=== PATIENT | female | born 1980 | race Caucasian/White ===

== ENCOUNTER → 2016-04-07 | Outpatient (CLI) | payer OTHER ==
--- NOTE | 2016-04-07 15:50 | MR ---
EXAMINATION TYPE: MR lumbar spine wo con DATE OF EXAM: 04/07/2016 11:09 AM COMPARISON: Prior lumbar MRI May 2012 HISTORY: Low back pain TECHNIQUE: Multiplanar, multisequence images of the lumbar spine were acquired. There is a mild spinal curvature as on prior exam. Endplate discogenic marrow signal change, multilev el spondylosis again noted. Disc spaces are stable. L1-L2: Stable, unremarkable L2-L3: Stable, no significant interval change L3-L4: There is some disc desiccation present, loss of disc height and signal, small central posterio r disc bulge causes minimal anterior mass effect on the thecal sac as on prior exam. Facet arthropath y with hypertrophy of the ligamentum flavum causes posterior lateral mass effect on the thecal sac. L4-L5: Stable, there is a mild posterior broad-based disc bulge, no significant central stenosis or f oraminal encroachment. Mild facet arthropathy with hypertrophy of the ligamentum flavum causing poste rior lateral aspect of the thecal sac. L5-S1: Stable, no significant interval change Lumbar segments are intact. No paraspinal masses are identified. Conus medullaris has a normal appe arance. IMPRESSION: Essentially stable exam. Mild degenerative disc disease, facet arthropathy.
== END | disposition home or self-care (01) ==
LOC: RADMRIMAIN 09:37
PROVIDERS: ATTEND Nurse Practitioner Acute Care
DX: M51.36 Other intervertebral disc degeneration, lumbar region (principal); M46.86 Other specified inflammatory spondylopathies, lumbar region
CPT/HCPCS: 72148

== ENCOUNTER → 2018-01-12 | Outpatient (CLI) | payer OTHER ==
--- NOTE | 2018-01-12 11:28 | MR ---
EXAMINATION TYPE: MR lumbar spine wo con DATE OF EXAM: 01/12/2018 COMPARISON: MRI lumbar spine April 07, 2016. CT abdomen and pelvis October 09, 2013. HISTORY: Lumbago per order. Back pain into left leg for years per patient. TECHNIQUE: Multiplanar, multisequence imaging of the lumbar spine is performed without IV contrast. FINDINGS: Sagittal images of the lumbar spine show vertebral body heights and alignment to remain sat isfactory. There is increasing disc desiccation upper to mid lumbar spine most prominent L3-L4 level redemonstrated. This space heights are maintained. No new large posterior disc herniations are prese nt on sagittal images. Tiny posterior disc herniation is redemonstrated L3-L4 level with annular tear . The conus medullaris is stable in position ending mid to inferior T12 level without abnormal signal . Some heterogeneity lower lumbar spine is present. Axial images show the T12-L1, L1-L2, and L2-L3 levels all to appear stable and within normal limits. Axial images at L3-L4 level show broad-based right paracentral disc protrusion mildly effacing anteri or thecal sac, bilateral neural foramina are patent. No significant change from prior. Axial images at L4-L5 level redemonstrate mild facet degenerative changes bilaterally. Spinal canal i s preserved. Bilateral neural foramina are patent. No significant change from prior. Axial images at L5-S1 level redemonstrate mild facet degenerative changes bilaterally. No disc hernia tion or spinal canal effacement is seen. Bilateral neural foramina are patent. No significant change from prior. The paraspinal muscle bulk is preserved. No suspicious retroperitoneal findings are seen. IMPRESSION: Stable small disc herniation L3-L4 level. Stable facet arthropathy lower lumbar spine. No new or suspicious herniation is seen to account for patient's left-sided radiculopathy type symptoms .
== END | disposition home or self-care (01) ==
LOC: RADMRIMAIN 09:05
PROVIDERS: ATTEND Psychiatry & Neurology Neurology
DX: M51.26 Other intervertebral disc displacement, lumbar region (principal); M46.96 Unspecified inflammatory spondylopathy, lumbar region
CPT/HCPCS: 72148

== ENCOUNTER → 2018-12-11 | Outpatient (CLI) | payer OTHER ==
[2018-12-11 12:56] VITALS: BP 118/76; PULSE 70; RESP 16
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
== END | disposition home or self-care (01) ==
LOC: PNWHC3 12:09
PROVIDERS: ATTEND Specialist
DX: G89.29 Other chronic pain (principal); M51.36 Other intervertebral disc degeneration, lumbar region; M47.816 Spondylosis without myelopathy or radiculopathy, lumbar region; M46.96 Unspecified inflammatory spondylopathy, lumbar region; M79.7 Fibromyalgia; Z79.891 Long term (current) use of opiate analgesic; Z79.899 Other long term (current) drug therapy; Z87.891 Personal history of nicotine dependence
CPT/HCPCS: 99211

== ENCOUNTER → 2019-09-20 | Outpatient (CLI) | payer OTHER ==
--- NOTE | 2019-09-20 11:23 | XR ---
Right shoulder HISTORY: Right shoulder pain 2 views the right shoulder correlated to chest x-ray same date Arthropathy is present at the acromioclavicular joint. There is no fracture or dislocation. Right wei g apex as visualized is normal. Distal acromion is downturned. IMPRESSION: Correlate for possible impingement. Shoulder MRI may be of benefit.
--- NOTE | 2019-09-20 11:30 | XR ---
EXAMINATION TYPE: XR chest 2V DATE OF EXAM: 09/20/2019 COMPARISON: NONE HISTORY: M 25.511, M 94.0, chest pain right side TECHNIQUE: Frontal and lateral views of the chest are obtained. FINDINGS: There is no focal air space opacity, pleural effusion, or pneumothorax seen. The cardiac silhouette size is within normal limits. The osseous structures are intact. IMPRESSION: No acute cardiopulmonary process.
== END | disposition home or self-care (01) ==
LOC: RADXRMAIN 09:38
PROVIDERS: ATTEND Internal Medicine
DX: M25.511 Pain in right shoulder (principal); M94.0 Chondrocostal junction syndrome [Tietze]
CPT/HCPCS: 71046

== ENCOUNTER → 2019-10-25 | Outpatient (CLI) | payer OTHER ==
--- NOTE | 2019-10-25 15:36 | MR ---
EXAMINATION TYPE: MR shoulder RT wo con DATE OF EXAM: 10/25/2019 COMPARISON: Right shoulder x-ray September 20, 2019 HISTORY: Rt shoulder pain, radiates into chest TECHNIQUE: Multiplanar, multisequence imaging of the right shoulder is performed without contrast. FINDINGS: Rotator Cuff: Distal supraspinatus and infraspinatus tendons are intact. Subscapularis tendon is inta ct. Rotator cuff muscle bulk is preserved. Acromioclavicular Joint: Acromioclavicular joint appears within normal limits. Underlying fat plane m aintained. Distal acromion morphology unremarkable. Glenohumeral Joint: Small joint effusion. No significant spurring. Mild narrowing. Labrum: The labrum appears grossly intact given limitation of non-arthrogram study. Biceps Tendon: The long head of biceps is in normal location within bicipital groove. Bone marrow signal: No focal abnormal marrow signal is appreciated. Other: No additional significant abnormality is appreciated. IMPRESSION: No rotator cuff or labral tear identified.
== END | disposition home or self-care (01) ==
LOC: RADMRIMAIN 13:45
PROVIDERS: ATTEND Internal Medicine
DX: M25.511 Pain in right shoulder (principal)

== ENCOUNTER → 2020-02-06 | Outpatient (CLI) | payer OTHER ==
[2020-02-06 13:35] VITALS: BP 130/84; PULSE 76; RESP 14; TEMP 98
--- NOTE | 2020-02-06 13:46 | P.PN ---
Subjective Progress Note Date: 02/06/20 This is a 39-year-old lady with history of chronic neck and lower back pain. The patient was in our clinic about one year ago and we recommended doing a diagnostic lumbar medial branch block at that time however the patient was hesitant about it. The patient came back with a new complaint of increasing n jaiden and right shoulder pain. The patient had what seems to be trigger point injection around the right shoulder blade and also shoulder joint steroid injection which has helped her pain slightly as she states. She also received an MRI on the cervical spine which showed severe neural foraminal stenosis at multiple levels however the patient denies any paresthesia or pain in the extremities. The MRI also showed facet arthropathy at multiple levels. The patient takes 2 pills of [place] 10 mg every day and Cymbalta. Patient denies new-onset weakness, bowel/bladder incontinence, or any other signs or symptoms of cauda equina syndrome. There are no signs of acute intoxication, and no indications of medication diversion or overuse. In addition to above, 13-point review of systems is also negative for chest pain, shortness of breath, changes in vision, changes in hearing, new onset weakness, abdominal pain, diarrhea, extreme fatigue, malaise, fever, skin changes, homicidal or suicidal ideation, or bowel or bladder incontinence. Vital Signs: Reviewed in EMR Gen: AAOx3, NAD HEENT: PERRLA,hearing grossly normal Pulm: resp unlabored Neck: supple, trachea midline Neuro exam of the upper extremities: Normal muscle strength bilaterally Straight leg raising test: Seth's test: Range of motion of the lumbar spine: Facet loading test: Tenderness in the cervical paravertebral musculature: Positive on the right side Positive tenderness also around the right shoulder blade Normal range of motion of the cervical spine however with increased pain with right rotation Neuro: CN II-XII grossly intact, Imaging: Reviewed in EMR/chart Assessment: Cervical spondylosis without myelopathy 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 Explanation: Opioid and psychological risk scores were reviewed. Diagnoses, prognoses, and multiple treatment options including but not limited to physical therapy, interventional therapies, adjuvant medical therapies, narcotic medication therapies, and surgery were discussed with the patient and all questions were answered to the patient's satisfaction. 2. Opioid agreement: Signed with the patient and the patient is warned not to use opioids while driving or before driving and not to combine opioids with benzodiazepines or alcohol. 3. Counseling: The patient was counseled extensively on SMOKING CESSATION, BODY MASS INDEX, EXERCISE. Specifically, the patient was instructed regarding the importance of smoking cessation, obesity, and exercise in the context of both chronic pain and overall health. 4. Procedures: The patient may benefit from a diagnostic cervical medial branch block however she does not want to have any injections. 5. Consultations: Refer to physical therapy 6. Investigations: None 7. Medications: Continue same medications which she receives from her primary care physician 8. Disposition: Return to clinic as needed 9. Maps were reviewed and were appropriate. Objective - Vital Signs Vital signs: Vital Signs Temp 98.0 F 02/06/20 13:26 Pulse 76 02/06/20 13:26 Resp 14 02/06/20 13:26 BP 130/84 02/06/20 13:26 Pulse Ox 99 02/06/20 13:26
== END | disposition home or self-care (01) ==
LOC: PNWHC3 12:31
PROVIDERS: ATTEND Anesthesiology
DX: M47.812 Spondylosis without myelopathy or radiculopathy, cervical region (principal); M48.061 Spinal stenosis, lumbar region without neurogenic claudication; M79.18 Myalgia, other site
CPT/HCPCS: 99211

== ENCOUNTER → 2020-08-27 | Outpatient (CLI) | payer OTHER ==
--- NOTE | 2020-08-28 02:36 | MR ---
EXAMINATION TYPE: MR knee RT wo con DATE OF EXAM: 08/27/2020 COMPARISON: None HISTORY: Right knee pain, lateral aspect x 2 mos, no trauma. Multiplanar multiecho imaging of the right knee was performed without contrast. The anterior posterior cruciate ligaments are intact. There is a mild knee joint effusion. The collat eral ligaments are intact. I see no bony destructive process. Patella is intact. There is no evidence of bone edema. The menisci appear intact. IMPRESSION: Knee joint effusion. No evidence of ligamentous tear. No evidence of a meniscal tear.
== END | disposition home or self-care (01) ==
LOC: RADMRIMAIN 18:57
PROVIDERS: ATTEND Orthopaedic Surgery
DX: M25.461 Effusion, right knee (principal)

== ENCOUNTER → 2020-10-04 | Outpatient (CLI) | payer OTHER ==
--- NOTE | 2020-10-04 17:00 | MR ---
EXAMINATION TYPE: MR lumbar spine wo con DATE OF EXAM: 10/04/2020 COMPARISON: 01/12/2018 HISTORY: Low back pain that goes down both legs for 4 months. Multiplanar multiecho imaging of the lumbar spine without contrast. Vertebra have normal alignment. Disc spaces are fairly normal. There is no compression fracture. I se e no bony destructive process. Posterior elements are intact. There is no paraspinal mass. The neural foramina are fairly well-maintained. Sacroiliac joints appear intact. IMPRESSION: Negative MR scan of the lumbar spine. No change.
== END | disposition home or self-care (01) ==
LOC: RADMRIMAIN 07:30
PROVIDERS: ATTEND Orthopaedic Surgery
DX: M54.16 Radiculopathy, lumbar region (principal)
CPT/HCPCS: 72148

== ENCOUNTER → 2020-10-14 | Outpatient (CLI) | payer OTHER ==
[2020-10-14 19:40] LABS: HCT 38.7 % (37.2-46.3); HGB 13.1 g/dL (12.0-15.0); MCH 31.2 pg (27.0-32.0); MCHC 33.9 g/dL (32.0-37.0); MCV 92.1 fL (80.0-97.0); Mean Platelet Volume 11.5 fL (9.5-12.2); Platelet Count 261 X 10*3/uL (140-440); RDW 11.9 % (11.5-14.5); WBC 5.52 X 10*3/uL (4.50-10.00)
[2020-10-14 20:59] LABS: Erythrocyte Sedimentation Rate 7 mm/Hr (0-20)
[2020-10-14 21:53] LABS: ALT 9 U/L (8-44); AST 22 U/L (13-35); African American GFR (CKD) 123.9 (60.0-200.0); Albumin/Globulin Ratio 1.71 (1.60-3.17); Alkaline Phosphatase 52 U/L (41-126); C Reactive Protein <0.4 mg/dL (0.0-0.8); Calcium 8.6 mg/dL (8.7-10.3); Carbon Dioxide 23.7 mmol/L (21.6-31.8); Chloride 109 mmol/L (96-109); Globulin 2.4 g/dL (1.6-3.3); Glucose 97 mg/dL (70-110); Non-African American GFR(CKD) 106.9 (60.0-200.0); Potassium 4.2 mmol/L (3.5-5.5); Sodium 140 mmol/L (135-145); Total Bilirubin 0.6 mg/dL (0.2-1.2); Total Protein 6.5 g/dL (6.2-8.2)
== END | disposition home or self-care (01) ==
LOC: LABWHC1 12:55
PROVIDERS: ATTEND Orthopaedic Surgery
DX: M54.9 Dorsalgia, unspecified (principal)
CPT/HCPCS: 36415; 80053; 82306; 85027; 85652; 86140

== ENCOUNTER 2021-05-12 00:41 | Emergency (ER) | payer OTHER ==
[2021-05-12 00:49] VITALS: PULSE 79
[2021-05-12] MEDS ORDERED: ONDANSETRON 4 MG/2 ML VIAL IVP STA (01:46)
[2021-05-12] MEDS ORDERED: SODIUM CHLORIDE 0.9% 1,000 ML IV STA (01:46)
--- NOTE | 2021-05-12 01:51 | ED ---
General Adult HPI - General Chief complaint: Nausea/Vomiting/Diarrhea Stated complaint: Vomiting, Nausea Time Seen by Provider: 05/12/21 01:26 Source: patient Mode of arrival: ambulatory Limitations: no limitations - History of Present Illness Initial comments: Dictation was produced using [employer] dictation software. please excuse any grammatical, word or spelling errors. Chief Complaint: 41-year-old female presents to the emergency department for nausea vomiting diarrhea History of Present Illness: Is 41-year-old female presents to the emergency department for nausea vomiting and diarrhea. Patient states her symptoms began at 10:30 PM. They had dinner where she had the meat loaf. She is not sure if she had food poisoning. Her fianc at the bedside had a different male here he is asymptomatic. Patient denies ever having had symptoms like this in the past. States that her emesis is nonbloody and non-bilious. She is also having diarrhea that's watery. Patient denies any abdominal pain. Straight-leg is some ODT Zofran with no improvement of symptoms. She feels chills but denies any fevers. The ROS documented in this emergency department record has been reviewed and confirmed by me. Those systems with pertinent positive or negative responses have been documented in the HPI. All other systems are other negative and/or noncontributory. PHYSICAL EXAM: General Impression: Alert and oriented x3, not in acute distress, vomiting basin at the bedside HEENT: Normocephalic atraumatic, extra-ocular movements intact, pupils equal and reactive to light bilaterally, mucous membranes moist. Cardiovascular: Heart regular rate and rhythm Chest: Able to complete full sentences, no retractions, no tachypnea Abdomen: abdomen soft, non-tender, non-distended, no organomegaly Musculoskeletal: Pulses present and equal in all extremities, no peripheral edema Motor: no focal deficits noted Neurological: CN II-XII grossly intact, no focal motor or sensory deficits noted Skin: Intact with no visualized rashes Psych: Normal affect and mood ED course: Is a 41-year-old female presents to the emergency department for nausea vomiting and diarrhea that started acutely 3 hours ago. Vital signs upon arrival are within acceptable limits. Laboratory evaluation obtained. CBC, metabolic panel is unremarkable. Urinalys is is negative. Patient reevaluated bedside at 4:30 AM found to be in stable medical condition. Patient reports that her symptoms are improved. Clinical presentation concerning for food poisoning versus gastroenteritis. Patient agreeable for discharge. She is given prescription for antiemetics. - Related Data Home Medications Medication Instructions Recorded Confirmed DULoxetine HCL [Cymbalta] 60 mg PO DAILY 12/07/18 02/01/20 HYDROcodone/APAP 5-325MG [Rhodell 1 tab PO BID 12/11/18 02/01/20 5-325] ALPRAZolam [Xanax] 0.25 mg PO HS PRN 02/01/20 02/01/20 Cyclobenzaprine [Flexeril] 10 mg PO TID 02/01/20 02/01/20 rOPINIRole HCL [Requip] 3 mg PO HS 02/01/20 02/01/20 Previous Rx's Medication Instructions Recorded Metoclopramide HCl [Reglan] 10 mg PO TID PRN #12 tablet 05/12/21 Allergies Allergy/AdvReac Type Severity Reaction Status Date / Time No Known Allergies Allergy Verified 05/12/21 00:48 Review of Systems ROS Statement: Those systems with pertinent positive or pertinent negative responses have been documented in the HPI. ROS Other: All systems not noted in ROS Statement are negative. Past Medical History Past Medical History: Fibromyalgia Additional Past Medical History / Comment(s): lower back pain radiating to left leg, shamir legs N/T, neck & right shoulder pain History of Any Multi-Drug Resistant Organisms: None Reported Past Surgical History: Hysterectomy, Tubal Ligation Additional Past Surgical History / Comment(s): rt oopherectomy Past Anesthesia/Blood Transfusion Reactions: No Reported Reaction Past Psychological History: Anxiety Smoking Status: Former smoker Past Alcohol Use History: None Reported Past Drug Use History: Marijuana - Past Family History Mother Family Medical History: Deep Vein Thrombosis (DVT) General Exam Limitations: no limitations Course Vital Signs 05/12/21 05/12/21 00:46 02:11 Temperature 98.1 F 97.4 F L Pulse Rate 79 79 Respiratory 18 22 Rate Blood Pressure 139/92 114/73 O2 Sat by Pulse 96 Oximetry Medical Decision Making - Lab Data Result diagrams: 05/12/21 02:01 05/12/21 02:01 Lab Results 05/12/21 05/12/21 05/12/21 Range/Units 02:01 02:01 02:01 WBC 10.8 H (3.8-10.6) k/uL RBC 5.06 (3.80-5.40) m/uL Hgb 15.8 (11.4-16.0) gm/dL Hct 48.3 H (34.0-46.0) % MCV 95.4 (80.0-100.0) fL MCH 31.2 (25.0-35.0) pg MCHC 32.7 (31.0-37.0) g/dL RDW 11.7 (11.5-15.5) % Plt Count 319 (150-450) k/uL MPV 8.7 Neutrophils % 89 % Lymphocytes % 7 % Monocytes % 3 % Eosinophils % 1 % Basophils % 0 % Neutrophils # 9.6 H (1.3-7.7) k/uL Lymphocytes # 0.8 L (1.0-4.8) k/uL Monocytes # 0.3 (0-1.0) k/uL Eosinophils # 0.1 (0-0.7) k/uL Basophils # 0.0 (0-0.2) k/uL Sodium (137-145) mmol/L Potassium (3.5-5.1) mmol/L Chloride (98-107) mmol/L Carbon Dioxide (22-30) mmol/L Anion Gap mmol/L BUN (7-17) mg/dL Creatinine (0.52-1.04) mg/dL Est GFR (CKD-EPI)AfAm (>60 ml/min/1.73 sqM) Est GFR (CKD-EPI)NonAf (>60 ml/min/1.73 sqM) Glucose (74-99) mg/dL Calcium (8.4-10.2) mg/dL Magnesium (1.6-2.3) mg/dL Total Bilirubin (0.2-1.3) mg/dL AST (14-36) U/L ALT (4-34) U/L Alkaline Phosphatase (38-126) U/L Total Protein (6.3-8.2) g/dL Albumin (3.5-5.0) g/dL Lipase (23-300) U/L Urine Color Yellow Urine Appearance Turbid H (Clear) Urine pH 5.0 (5.0-8.0) Ur Specific Orient 1.029 (1.001-1.035) Urine Protein 1+ H (Negative) Urine Glucose (UA) Negative (Negative) Urine Ketones Negative (Negative) Urine Blood Trace H (Negative) Urine Nitrite Negative (Negative) Urine Bilirubin Negative (Negative) Urine Urobilinogen 2.0 (<2.0) mg/dL Ur Leukocyte Esterase Negative (Negative) Amorphous Sediment Many H (None) /hpf Urine Bacteria Few H (None) /hpf Urine Mucus Many H (None) /hpf Urine HCG, Qual Not Detected (Not Detectd) 05/12/21 Range/Units 02:01 WBC (3.8-10.6) k/uL RBC (3.80-5.40) m/uL Hgb (11.4-16.0) gm/dL Hct (34.0-46.0) % MCV (80.0-100.0) fL MCH (25.0-35.0) pg MCHC (31.0-37.0) g/dL RDW (11.5-15.5) % Plt Count (150-450) k/uL MPV Neutrophils % % Lymphocytes % % Monocytes % % Eosinophils % % Basophils % % Neutrophils # (1.3-7.7) k/uL Lymphocytes # (1.0-4.8) k/uL Monocytes # (0-1.0) k/uL Eosinophils # (0-0.7) k/uL Basophils # (0-0.2) k/uL Sodium 137 (137-145) mmol/L Potassium 4.4 (3.5-5.1) mmol/L Chloride 103 (98-107) mmol/L Carbon Dioxide 24 (22-30) mmol/L Anion Gap 10 mmol/L BUN 16 (7-17) mg/dL Creatinine 0.75 (0.52-1.04) mg/dL Est GFR (CKD-EPI)AfAm >90 (>60 ml/min/1.73 sqM) Est GFR (CKD-EPI)NonAf >90 (>60 ml/min/1.73 sqM) Glucose 141 H (74-99) mg/dL Calcium 9.7 (8.4-10.2) mg/dL Magnesium 1.8 (1.6-2.3) mg/dL Total Bilirubin 0.7 (0.2-1.3) mg/dL AST 28 (14-36) U/L ALT 15 (4-34) U/L Alkaline Phosphatase 64 (38-126) U/L Total Protein 8.2 (6.3-8.2) g/dL Albumin 4.8 (3.5-5.0) g/dL Lipase 100 (23-300) U/L Urine Color Urine Appearance (Clear) Urine pH (5.0-8.0) Ur Specific Orient (1.001-1.035) Urine Protein (Negative) Urine Glucose (UA) (Negative) Urine Ketones (Negative) Urine Blood (Negative) Urine Nitrite (Negative) Urine Bilirubin (Negative) Urine Urobilinogen (<2.0) mg/dL Ur Leukocyte Esterase (Negative) Amorphous Sediment (None) /hpf Urine Bacteria (None) /hpf Urine Mucus (None) /hpf Urine HCG, Qual (Not Detectd) Disposition Clinical Impression: Gastroenteritis Disposition: HOME SELF-CARE Condition: Fair Instructions (If sedation given, give patient instructions): Acute Diarrhea (ED), Acute Nausea and Vomiting (ED) Prescriptions: Metoclopramide HCl [Reglan] 10 mg PO TID PRN #12 tablet PRN Reason: Nausea And Vomiting Is patient prescribed a controlled substance at d/c from ED?: No Referrals: Vinay Bowen MD [Primary Care Provider] - 1-2 days
[2021-05-12 02:13] VITALS: BP 114/73; RESP 22; TEMP 97.4
[2021-05-12 02:28] LABS: Amorphous Sediment,Urine Many /hpf; Appearance,Urine Turbid (Clear); Bacteria,Urine Few /hpf; Bilirubin,Urine Negative (Negative); Blood,Urine Trace (Negative); Color,Urine Yellow; Glucose,Urine (UA) Negative (Negative); Ketones,Urine Negative (Negative); Leukocyte Esterase,Urine Negative (Negative); Mucus,Urine Many /hpf; Nitrite,Urine Negative (Negative); Protein,Urine 1+ (Negative); Specific Gravity,Urine 1.029 (1.001-1.035)
[2021-05-12 03:46] LABS: ALT 15 U/L (4-34); AST 28 U/L (14-36); African American GFR (CKD) >90 (>60 ml/min/1.73 sqM); Albumin 4.8 g/dL (3.5-5.0); Alkaline Phosphatase 64 U/L (38-126); Anion Gap 10 mmol/L; Blood Urea Nitrogen 16 mg/dL (7-17); Calcium 9.7 mg/dL (8.4-10.2); Carbon Dioxide 24 mmol/L (22-30); Chloride 103 mmol/L (98-107); Glucose 141 mg/dL (74-99); Lipase 100 U/L (23-300); Magnesium 1.8 mg/dL (1.6-2.3); Non-African American GFR(CKD) >90 (>60 ml/min/1.73 sqM); Potassium 4.4 mmol/L (3.5-5.1); Sodium 137 mmol/L (137-145); Total Bilirubin 0.7 mg/dL (0.2-1.3); Total Protein 8.2 g/dL (6.3-8.2)
[2021-05-12] MEDS ORDERED: METOCLOPRAMIDE 5 MG/ML 2 ML VIAL IVP STA (04:10)
[2021-05-12 04:21] LABS: Basophils % (A) 0 %; Eosinophils # (A) 0.1 k/uL (0-0.7); Eosinophils % (A) 1 %; HCT 48.3 % (34.0-46.0); HGB 15.8 gm/dL (11.4-16.0); Lymphocytes # (A) 0.8 k/uL (1.0-4.8); Lymphocytes % (A) 7 %; MCH 31.2 pg (25.0-35.0); MCHC 32.7 g/dL (31.0-37.0); MCV 95.4 fL (80.0-100.0); Mean Platelet Volume 8.7; Monocytes # (A) 0.3 k/uL (0-1.0); Monocytes % (A) 3 %; Neutrophils # (A) 9.6 k/uL (1.3-7.7); Neutrophils % (A) 89 %; Platelet Count 319 k/uL (150-450); RBC 5.06 m/uL (3.80-5.40); RDW 11.7 % (11.5-15.5); WBC 10.8 k/uL (3.8-10.6)
== END 2021-05-12 04:41 | disposition home or self-care (01) ==
LOC: EC 00:41
DX: K52.9 Noninfective gastroenteritis and colitis, unspecified (principal); M79.7 Fibromyalgia; F41.9 Anxiety disorder, unspecified; F12.90 Cannabis use, unspecified, uncomplicated; Z87.891 Personal history of nicotine dependence; Z79.899 Other long term (current) drug therapy
CPT/HCPCS: 36415; 80053; 83690; 83735; 85025; 81001; 81025; 99284; 96374; 96375; 96361 ×2; J2765; J2405

== ENCOUNTER → 2021-05-28 | Outpatient (CLI) | payer OTHER ==
[2021-05-28 12:34] VITALS: BP 136/88; PULSE 88; RESP 18; TEMP 98.2
--- NOTE | 2021-05-28 12:47 | P.PN ---
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 Patient states she receives [place] 5/325 mg from . Jessi is no longer seeing pain management patients. Discussed TPIs of the lumbar paraspinal muscles but patient is disinterested at this time. Pain level is 5 out of 10 in intensity, dull achy in the lower aspects of the lumbar spine left to right of midline with radiation of pain 8 out of 10 in intensity in the lower extremities with bending and lifting. Pain is alleviated with medications, ice, heat, physical therapy in 2019, chiropractic treatment 5 months ago, home exercise regimen, massage therapy and rest. Interventional pain procedures completed include R shoulder intra articular injections Patient is currently on [place] 5/[address] Boewn. Also admits to MM Cannabis use. Patient denies any side effects of the medication(s), denies excessive drowsiness or sleepiness, denies suicidal ideation and reports that the current pain medication is helping to control the pain and improve activities of daily living. Patient denies any motor or sensory deficits. Patient denies any fever or night sweats, denies any change in the bowel movements or urination. Physical Examination: -Constitutional: Cooperative. Not in acute distress . -HEENT: Neck is supple. No lymphadenopathy. No thyromegaly. Normal thyroid size. Eyes: No ptosis , no icterus, no photophobia. ENT: No auditory deficits. Normal oropharynx. No Thrush. - Respiratory: Chest clear to auscultations bilaterally. No wheezing. No rhonchi. - Cardiovascular: Regular rate and rhythm. S1 / S2 , no S3 , no S4. - Gastrointestinal: Abdomen soft no tenderness. Bowel sounds positive in all four quadrants. No organomegaly. - Genitourinary: Deferred. - Neurologic: Cranial nerve II to XII intact. No focal neurological deficits. - Psychatric: Alert & oriented x 3. Matching mood & appropriate affect. Judgment and insight intact. - Lymphatic: No Lymphadenopathy. - Musculoskeletal: Cervical spine: Muscle bulk/ tone/ strength in the bilateral upper extremities normal. Facet loading test cervical area positive. Lumbar spine: Motor bulk/ tone/ strength lower extremities , thigh and legs : 5/5 Deep tendon reflexes : Normal Knee Jerk. Normal Ankle Jerk . Vertebral body tenderness to palpation over Lumbar Facet Loading Test positive Bilateral lumbar paraspinal tenderness to deep palpation Straight Leg Raise: positive at 30 degrees right side/ left side Gaenslen's Test positive Sacral spine : Severe tenderness over the Sacroiliac joint: right side / left side Range of motion: Flexion of the lumbar spine <60 degrees Range of motion: Extension of the lumbar spine <20 degrees Gaenslen's Test positive Mark test: positive right side / left side Imaging: MRI of the lumbar spine from 10/04/20 reviewed Assessment and plan: Chronic low back pain secondary to muscular contusions Patient is disinterested in TPIs at this time All patient questions answered MAPS reviewed and it was appropriate. I have spent 31 minutes on patient care today. Dr Cortes was available by phone for the evaluation of this patient. The time was used to review the medical records including relevant urine studies and Prescription history (MAPs), review of the available imaging, evaluation and examination of the patient, coordination of care with the medical staff and if applicable referring physicians, as well as creation of the medical record Objective - Vital Signs Vital signs: Vital Signs Temp 98.2 F 05/28/21 12:25 Pulse 88 05/28/21 12:25 Resp 18 05/28/21 12:25 BP 136/88 05/28/21 12:25 Pulse Ox 99 05/28/21 12:25 Intake & Output 05/27/21 05/28/21 05/28/21 18:59 06:59 18:59 Weight 65.771 kg PQRS Measure Charge Sheet Mode of Arrival: Ambulatory - Pain Location Lower Back Non-Pharmacological Interventions: Chiropractic Treatment, Heat, Home Exercise, Ice, Massage, Physical Therapy, Stretching Pharmacological Interventions: PRN Medication, Topical Medication PQRS Narrative: Smoking Status Former smoker Blood Pressure 136/88 Pain Intensity [Lower Back] 5 Scale Used Numeric (1 - 10) Hx Alcohol Use (MH) No Home Medications: Ambulatory Orders DULoxetine HCL [Cymbalta] 60 mg PO DAILY 12/07/18 Cyclobenzaprine [Flexeril] 10 mg PO HS 02/01/20 HYDROcodone/APAP 10-325MG [[place] 10-325] 1 tab PO BID 05/27/21 Ibuprofen [Motrin] 800 mg PO DIRECTED PRN 05/27/21 Levothyroxine Sodium [Synthroid] 50 mcg PO DAILY 05/27/21 Ondansetron [Zofran] 4 mg PO DIRECTED PRN 05/27/21 Sertraline [Zoloft] 50 mg PO DAILY 05/27/21 busPIRone HCL 5 mg PO HS 05/27/21 rOPINIRole HCL [Requip] 1 mg PO HS 05/27/21
== END ==
LOC: PNWHC3 11:56
PROVIDERS: ATTEND Physician Assistant Medical
DX: S30.0XXA Contusion of lower back and pelvis, initial encounter (principal); G89.29 Other chronic pain; Z87.891 Personal history of nicotine dependence
CPT/HCPCS: 99211